=== PATIENT | female | born 1955 ===

== ENCOUNTER → 2017-08-22 | Outpatient (CLI) | payer OTHER ==
[~2017-08-22] MED LIST: ALBUTEROL2.5 MG/3 M; AMLODIPINE BESY10 MG; FUROSEMIDE20 MG; GILTUSS TR TAB1 EACH PO; TESSALON PERLE100 MG PO
== END | disposition home or self-care (01) ==
LOC: PPHC 10:47
DX: Z76.0 Encounter for issue of repeat prescription (principal)

== ENCOUNTER 2018-12-08 10:32 | Emergency (ER) | payer OTHER ==
[~2018-12-08] VITALS: Ht 157.5 cm; Wt 73.9 kg
== END 2018-12-08 19:44 | disposition home or self-care (01) ==
LOC: ER 10:32
DX: K58.8 Other irritable bowel syndrome (principal)

== ENCOUNTER 2020-08-25 08:00 | Outpatient (CLI) | payer OTHER | END 2020-08-25 08:30 | disposition home or self-care (01) | LOC: PPH VACUNA 08:00 | DX: Z23 Encounter for immunization (principal) ==